=== PATIENT | female | born 1950 | race Caucasian/White ===

== ENCOUNTER 2017-07-14 08:04 | Day surgery (SDC) | payer MEDICARE, OTHER ==
[~2017-07-14] VITALS: Ht 162.6 cm; Wt 108.4 kg
[~2017-07-14 08:04] MED LIST: ALBU3IS INH; ALBU90OI61 INH; EDARBYCLOR 40-1 EACH PO; ESCI20 PO; FLUSAL2505 INH; HYDR1TAB94 PO; LOSA50 PO; POTCHL20ER PO; Prilosec Otc20 MG PO; TRIBENZOR 40-51 EACH PO; VITAMIN C; Vitamin B Comple1 EA PO; Voltaren100 GM TP; ZOLP10 PO
[2017-07-14] MEDS ORDERED: ACET500 PO (13:12)
[2017-07-14] MEDS ORDERED: OXYC5 PO (13:14)
[2017-07-14] MEDS ORDERED: ASPI325EC PO (13:14)
[2017-07-15 04:30] LABS: BASOPHILS ABSOLUTE AUTO 0.05 K/mm3 (0.00-0.23); BASOPHILS PERCENT AUTO 0 % (0-2); EOSINOPHILS ABSOLUTE AUTO 0.22 K/mm3 (0.00-0.68); EOSINOPHILS PERCENT AUTO 2 % (0-6); Hematocrit 33.8 % (33.0-51.0); Hemoglobin 10.6 g/dL (11.5-16.0); IMMATURE GRAN ABSOLUTE AUTO 0.04 K/mm3 (0.00-0.10); IMMATURE GRAN PERCENT AUTO 0 % (0-1); LYMPHOCYTES ABSOLUTE AUTO 1.38 K/mm3 (0.84-5.20); LYMPHOCYTES PERCENT AUTO 12 % (21-46); MONOCYTES ABSOLUTE AUTO 1.18 K/mm3 (0.16-1.47); MONOCYTES PERCENT AUTO 11 % (4-13); Mean Corpuscular HGB 28.9 pg (26.0-34.0); Mean Corpuscular HGB Conc 31.4 g/dL (31.5-36.5); Mean Corpuscular Volume 92 fL (80-100); Mean Platelet Volume 10.2 fL (9.1-12.4); NEUTROPHILS ABSOLUTE AUTO 8.32 K/mm3 (1.96-9.15); NEUTROPHILS PERCENT AUTO 74 % (41-73); Platelet Count 273 K/mm3 (150-400); RDW Coefficient Variation 16.4 % (11.7-14.2); RDW Standard Deviation 56.5 fL (35.1-46.3); Red Blood Cell Count 3.67 M/mm3 (3.80-5.20); White Blood Cell Count 11.19 K/mm3 (4.00-11.30)
[2017-07-15 04:51] LABS: Anion Gap 8 mmol/L (6-16); Blood Urea Nitrogen 20 mg/dL (8-24); Bun/Creatinine Ratio 23.9 (12.0-20.0); CO2, Blood 25 mmol/L (21-32); Calcium, Blood 8.7 mg/dL (8.5-10.1); Chloride, Blood 105 mmol/L (98-108); Creatinine, Blood 0.84 mg/dL (0.40-1.00); Glomerular Filtration Rate >60 (60-); Glucose, Blood 102 mg/dL (70-99); Magnesium, Blood 2.4 mg/dL (1.6-2.4); Potassium, Blood 4.2 mmol/L (3.5-5.5); Sodium, Blood 138 mmol/L (136-145)
== END 2017-07-15 16:35 | disposition home or self-care (01) ==
LOC: PRE IP 08:04 → ORSCMMR 08:04 → SURS 08:04 → PRE IP 10:30 → EDSTATUS 10:30 → SURS 13:11 → ORSCMMR 07-15 16:35
PROVIDERS: Orthopaedic Surgery
PROC: 0SRD0J9 Replacement of Left Knee Joint with Synthetic Substitute, Cemented, Open Approach (ICD-10-PCS; principal; 2017-07-14 10:30)
DX: M17.12 Unilateral primary osteoarthritis, left knee (principal); I10 Essential (primary) hypertension; J45.909 Unspecified asthma, uncomplicated; E66.01 Morbid (severe) obesity due to excess calories; Z68.41 Body mass index [BMI] 40.0-44.9, adult; Z79.899 Other long term (current) drug therapy
CPT/HCPCS: 36415; 73560-LT; 80048; 83735; 85025; 88300; 97110; 97116; 97161; 97530; C1713; C1776; G8978; G8979; G8980; J0171; J0690; J0735; J1885; J2250; J2405; J2765; J2795; J3010; J7120

== ENCOUNTER 2017-08-25 13:21 | Inpatient (IN) | payer MEDICARE, OTHER ==
[~2017-08-25] VITALS: Ht 162.6 cm; Wt 103.0 kg
[~2017-08-25 13:21] MED LIST changes: +ACET500 PO; +ASPI325EC PO; +OXYC5 PO
[2017-08-25 14:15] LABS: Alanine Aminotransfer (ALT/SGP 14 U/L (12-78); Albumin, Blood 3.2 g/dL (3.4-5.0); Albumin/Globulin Ratio 0.9 (0.8-1.8); Alk Phos 69 U/L (50-136); Anion Gap 18 mmol/L (6-16); Aspartate Aminotrans (AST/SGOT 8 U/L (12-37); Bilirubin, Total 0.3 mg/dL (0.1-1.0); Blood Urea Nitrogen 15 mg/dL (8-24); Bun/Creatinine Ratio 14.7 (12.0-20.0); CO2, Blood 15 mmol/L (21-32); Calcium, Blood 8.8 mg/dL (8.5-10.1); Chloride, Blood 104 mmol/L (98-108); Creatinine, Blood 1.02 mg/dL (0.40-1.00); Globulin, Blood 3.4 g/dL (2.2-4.0); Glomerular Filtration Rate 57 (60-); Glucose, Blood 144 mg/dL (70-99); Sodium, Blood 137 mmol/L (136-145); Total Protein, Blood 6.6 g/dL (6.4-8.2); Troponin I <0.015 ng/mL (0.000-0.040)
[2017-08-25 14:29] LABS: BASOPHILS ABSOLUTE AUTO 0.04 K/mm3 (0.00-0.23); BASOPHILS PERCENT AUTO 0 % (0-2); EOSINOPHILS ABSOLUTE AUTO 0.05 K/mm3 (0.00-0.68); EOSINOPHILS PERCENT AUTO 0 % (0-6); IMMATURE GRAN ABSOLUTE AUTO 0.11 K/mm3 (0.00-0.10); IMMATURE GRAN PERCENT AUTO 1 % (0-1); LYMPHOCYTES ABSOLUTE AUTO 1.79 K/mm3 (0.84-5.20); LYMPHOCYTES PERCENT AUTO 13 % (21-46); MONOCYTES ABSOLUTE AUTO 0.69 K/mm3 (0.16-1.47); MONOCYTES PERCENT AUTO 5 % (4-13); Mean Corpuscular HGB 23.5 pg (26.0-34.0); Mean Corpuscular HGB Conc 28.7 g/dL (31.5-36.5); Mean Corpuscular Volume 82 fL (80-100); NEUTROPHILS ABSOLUTE AUTO 10.88 K/mm3 (1.96-9.15); NEUTROPHILS PERCENT AUTO 80 % (41-73); Platelet Count 778 K/mm3 (150-400); RDW Coefficient Variation 18.6 % (11.7-14.2); RDW Standard Deviation 56.1 fL (35.1-46.3); Red Blood Cell Count 2.04 M/mm3 (3.80-5.20); White Blood Cell Count 13.56 K/mm3 (4.00-11.30)
[2017-08-25 15:06] LABS: Hematocrit 16.7 % (33.0-51.0); Hemoglobin 4.8 g/dL (11.5-16.0)
[2017-08-25 19:08] LABS: Percent Saturation 2.4 % (15.0-50.0)
[2017-08-26 05:05] LABS: BASOPHILS ABSOLUTE AUTO 0.05 K/mm3 (0.00-0.23); BASOPHILS PERCENT AUTO 1 % (0-2); EOSINOPHILS ABSOLUTE AUTO 0.31 K/mm3 (0.00-0.68); EOSINOPHILS PERCENT AUTO 3 % (0-6); IMMATURE GRAN ABSOLUTE AUTO 0.04 K/mm3 (0.00-0.10); IMMATURE GRAN PERCENT AUTO 0 % (0-1); LYMPHOCYTES ABSOLUTE AUTO 2.64 K/mm3 (0.84-5.20); LYMPHOCYTES PERCENT AUTO 27 % (21-46); MONOCYTES ABSOLUTE AUTO 0.74 K/mm3 (0.16-1.47); MONOCYTES PERCENT AUTO 7 % (4-13); Mean Corpuscular HGB 25.2 pg (26.0-34.0); Mean Corpuscular HGB Conc 31.5 g/dL (31.5-36.5); Mean Corpuscular Volume 80 fL (80-100); Mean Platelet Volume 9.5 fL (9.1-12.4); NEUTROPHILS ABSOLUTE AUTO 6.18 K/mm3 (1.96-9.15); NEUTROPHILS PERCENT AUTO 62 % (41-73); Platelet Count 518 K/mm3 (150-400); RDW Coefficient Variation 17.3 % (11.7-14.2); RDW Standard Deviation 50.4 fL (35.1-46.3); White Blood Cell Count 9.96 K/mm3 (4.00-11.30)
[2017-08-26 05:08] LABS: Hemoglobin 5.3 g/dL (11.5-16.0)
[2017-08-26 05:10] LABS: Hematocrit 16.8 % (33.0-51.0)
[2017-08-26 05:27] LABS: Alanine Aminotransfer (ALT/SGP 12 U/L (12-78); Albumin, Blood 2.5 g/dL (3.4-5.0); Albumin/Globulin Ratio 0.9 (0.8-1.8); Alk Phos 57 U/L (50-136); Anion Gap 7 mmol/L (6-16); Aspartate Aminotrans (AST/SGOT 8 U/L (12-37); Bilirubin, Total 0.7 mg/dL (0.1-1.0); Blood Urea Nitrogen 16 mg/dL (8-24); Bun/Creatinine Ratio 18.3 (12.0-20.0); CO2, Blood 24 mmol/L (21-32); Calcium, Blood 7.9 mg/dL (8.5-10.1); Chloride, Blood 110 mmol/L (98-108); Creatinine, Blood 0.87 mg/dL (0.40-1.00); Globulin, Blood 2.8 g/dL (2.2-4.0); Glomerular Filtration Rate >60 (60-); Glucose, Blood 82 mg/dL (70-99); Sodium, Blood 141 mmol/L (136-145); Thyroxine (T4) 7.9 ug/dL (4.8-13.9); Total Protein, Blood 5.3 g/dL (6.4-8.2)
[2017-08-26 05:31] LABS: Triiodothyronine, Free 2.37 pg/mL (2.18-3.98)
[2017-08-26 19:31] LABS: RNP/SM Ab IgG <0.2 AI (<1.0)
[2017-08-27 04:39] LABS: BASOPHILS ABSOLUTE AUTO 0.05 K/mm3 (0.00-0.23); BASOPHILS PERCENT AUTO 1 % (0-2); EOSINOPHILS ABSOLUTE AUTO 0.52 K/mm3 (0.00-0.68); EOSINOPHILS PERCENT AUTO 5 % (0-6); Hematocrit 22.8 % (33.0-51.0); Hemoglobin 7.3 g/dL (11.5-16.0); IMMATURE GRAN ABSOLUTE AUTO 0.05 K/mm3 (0.00-0.10); IMMATURE GRAN PERCENT AUTO 1 % (0-1); LYMPHOCYTES ABSOLUTE AUTO 2.53 K/mm3 (0.84-5.20); LYMPHOCYTES PERCENT AUTO 26 % (21-46); MONOCYTES ABSOLUTE AUTO 0.87 K/mm3 (0.16-1.47); MONOCYTES PERCENT AUTO 9 % (4-13); Mean Corpuscular HGB 26.4 pg (26.0-34.0); Mean Corpuscular Volume 82 fL (80-100); Mean Platelet Volume 9.1 fL (9.1-12.4); NEUTROPHILS ABSOLUTE AUTO 5.84 K/mm3 (1.96-9.15); NEUTROPHILS PERCENT AUTO 59 % (41-73); Platelet Count 540 K/mm3 (150-400); RDW Coefficient Variation 17.2 % (11.7-14.2); RDW Standard Deviation 51.8 fL (35.1-46.3); Red Blood Cell Count 2.77 M/mm3 (3.80-5.20); White Blood Cell Count 9.86 K/mm3 (4.00-11.30)
[2017-08-27 04:58] LABS: Anion Gap 8 mmol/L (6-16); Blood Urea Nitrogen 10 mg/dL (8-24); Bun/Creatinine Ratio 12.7 (12.0-20.0); CO2, Blood 25 mmol/L (21-32); Calcium, Blood 8.4 mg/dL (8.5-10.1); Chloride, Blood 109 mmol/L (98-108); Creatinine, Blood 0.79 mg/dL (0.40-1.00); Glomerular Filtration Rate >60 (60-); Glucose, Blood 80 mg/dL (70-99); Potassium, Blood 3.7 mmol/L (3.5-5.5); Sodium, Blood 142 mmol/L (136-145)
[2017-08-27 07:17] LABS: C3 119 mg/dL
[2017-08-27 14:18] LABS: Stool Occult Blood Guaiac 1 Pos (Neg)
[2017-08-28 05:00] LABS: Hematocrit 26.2 % (33.0-51.0); Hemoglobin 8.1 g/dL (11.5-16.0); Mean Corpuscular HGB 25.6 pg (26.0-34.0); Mean Corpuscular HGB Conc 30.9 g/dL (31.5-36.5); Mean Corpuscular Volume 83 fL (80-100); Mean Platelet Volume 9.1 fL (9.1-12.4); Platelet Count 533 K/mm3 (150-400); RDW Coefficient Variation 17.6 % (11.7-14.2); RDW Standard Deviation 52.8 fL (35.1-46.3); Red Blood Cell Count 3.16 M/mm3 (3.80-5.20); White Blood Cell Count 14.05 K/mm3 (4.00-11.30)
[2017-08-28 05:23] LABS: Anion Gap 6 mmol/L (6-16); Blood Urea Nitrogen 14 mg/dL (8-24); Bun/Creatinine Ratio 15.5 (12.0-20.0); CO2, Blood 26 mmol/L (21-32); Calcium, Blood 8.3 mg/dL (8.5-10.1); Chloride, Blood 109 mmol/L (98-108); Glomerular Filtration Rate >60 (60-); Glucose, Blood 87 mg/dL (70-99); Potassium, Blood 4.2 mmol/L (3.5-5.5); Sodium, Blood 141 mmol/L (136-145)
[2017-08-28 05:31] LABS: Percent Saturation 6.6 % (15.0-50.0)
== END 2017-08-28 13:56 | disposition home or self-care (01) | DRG 379 ==
LOC: ER 13:21 → PCU 13:22 → MEDS 13:22 → PCU 21:04 → MEDS 08-26 13:41 → PCU 08-26 15:36 → MEDS 08-26 19:36
PROVIDERS: Emergency Medicine; Family Medicine; Internal Medicine; Internal Medicine Gastroenterology
PROC: 30233N1 Transfusion of Nonautologous Red Blood Cells into Peripheral Vein, Percutaneous Approach (ICD-10-PCS; principal; 2017-08-25)
PROC: 0DJD8ZZ Inspection of Lower Intestinal Tract, Via Natural or Artificial Opening Endoscopic (ICD-10-PCS; 2017-08-27 15:15)
PROC: 0DB68ZX Excision of Stomach, Via Natural or Artificial Opening Endoscopic, Diagnostic (ICD-10-PCS; 2017-08-27 15:15)
PROC: 0DB58ZX Excision of Esophagus, Via Natural or Artificial Opening Endoscopic, Diagnostic (ICD-10-PCS; 2017-08-27 15:15)
DX: K25.4 Chronic or unspecified gastric ulcer with hemorrhage (principal); I12.9 Hypertensive chronic kidney disease with stage 1 through stage 4 chronic kidney disease, or unspecified chronic kidney disease; N18.1 Chronic kidney disease, stage 1; K21.9 Gastro-esophageal reflux disease without esophagitis; Z96.653 Presence of artificial knee joint, bilateral; K44.9 Diaphragmatic hernia without obstruction or gangrene; D50.9 Iron deficiency anemia, unspecified; K64.8 Other hemorrhoids; K57.90 Diverticulosis of intestine, part unspecified, without perforation or abscess without bleeding; Z88.0 Allergy status to penicillin
CPT/HCPCS: 36415; 36430; 71046; 80048; 80053; 82270; 82272; 82607; 82728; 82746; 83540; 83550; 83880; 84436; 84443; 84481; 84484; 85025; 85027; 85651; 86160; 86225; 86235; 86255; 86850; 86900; 86901; 86923; 88305; 88342; 93005; 93010; 94640; 94760; 96361; 96374; 99285; C9113; J2250; J2916; J7030; J7120; P9016

== ENCOUNTER → 2018-07-23 | Outpatient (CLI) | payer MEDICARE, OTHER ==
[2018-07-23 18:12] LABS: BASOPHILS ABSOLUTE AUTO 0.09 K/mm3 (0.00-0.23); BASOPHILS PERCENT AUTO 1 % (0-2); EOSINOPHILS ABSOLUTE AUTO 0.15 K/mm3 (0.00-0.68); EOSINOPHILS PERCENT AUTO 1 % (0-6); Hemoglobin 9.2 g/dL (11.5-16.0); IMMATURE GRAN ABSOLUTE AUTO 0.05 K/mm3 (0.00-0.10); IMMATURE GRAN PERCENT AUTO 1 % (0-1); LYMPHOCYTES ABSOLUTE AUTO 1.98 K/mm3 (0.84-5.20); LYMPHOCYTES PERCENT AUTO 18 % (21-46); MONOCYTES ABSOLUTE AUTO 0.74 K/mm3 (0.16-1.47); MONOCYTES PERCENT AUTO 7 % (4-13); Mean Corpuscular HGB 23.2 pg (26.0-34.0); Mean Corpuscular HGB Conc 29.7 g/dL (31.5-36.5); Mean Corpuscular Volume 78 fL (80-100); Mean Platelet Volume 10.1 fL (9.1-12.4); NEUTROPHILS ABSOLUTE AUTO 7.78 K/mm3 (1.96-9.15); NEUTROPHILS PERCENT AUTO 72 % (41-73); Platelet Count 532 K/mm3 (150-400); RDW Coefficient Variation 15.5 % (11.7-14.2); RDW Standard Deviation 44.5 fL (35.1-46.3); Red Blood Cell Count 3.97 M/mm3 (3.80-5.20); White Blood Cell Count 10.79 K/mm3 (4.00-11.30)
== END ==
LOC: LAB SHORT 17:55 → LAB 17:55
PROVIDERS: Internal Medicine Hematology & Oncology
DX: D50.0 Iron deficiency anemia secondary to blood loss (chronic) (principal)
CPT/HCPCS: 85025

== ENCOUNTER 2019-08-06 10:41 | Day surgery (SDC) | payer MEDICARE, OTHER ==
[~2019-08-06] VITALS: Ht 162.6 cm; Wt 107.4 kg
[2019-08-06] MEDS ORDERED: ESCI20 (11:34)
[2019-08-06] MEDS ORDERED: LOSA50 (11:34)
== END 2019-08-06 13:15 | disposition home or self-care (01) ==
LOC: ORSCSDS 10:41
PROVIDERS: Internal Medicine Gastroenterology
PROC: 0DBH8ZX Excision of Cecum, Via Natural or Artificial Opening Endoscopic, Diagnostic (ICD-10-PCS; principal; 2019-08-06 12:00)
PROC: 0DB78ZX Excision of Stomach, Pylorus, Via Natural or Artificial Opening Endoscopic, Diagnostic (ICD-10-PCS; principal; 2019-08-06 12:00)
PROC: 0DB58ZX Excision of Esophagus, Via Natural or Artificial Opening Endoscopic, Diagnostic (ICD-10-PCS; principal; 2019-08-06 12:00)
PROC: 0DB98ZX Excision of Duodenum, Via Natural or Artificial Opening Endoscopic, Diagnostic (ICD-10-PCS; principal; 2019-08-06 12:00)
PROC: 0DBL8ZX Excision of Transverse Colon, Via Natural or Artificial Opening Endoscopic, Diagnostic (ICD-10-PCS; principal; 2019-08-06 12:00)
DX: K52.9 Noninfective gastroenteritis and colitis, unspecified (principal); D50.9 Iron deficiency anemia, unspecified; R93.3 Abnormal findings on diagnostic imaging of other parts of digestive tract; D12.0 Benign neoplasm of cecum; D12.3 Benign neoplasm of transverse colon; K63.89 Other specified diseases of intestine; K21.0 Gastro-esophageal reflux disease with esophagitis; K44.9 Diaphragmatic hernia without obstruction or gangrene; K57.30 Diverticulosis of large intestine without perforation or abscess without bleeding; K64.1 Second degree hemorrhoids; I10 Essential (primary) hypertension; J45.909 Unspecified asthma, uncomplicated; E78.5 Hyperlipidemia, unspecified; Z79.899 Other long term (current) drug therapy
CPT/HCPCS: 88305; 88341; 88342; J2704; J7120

== ENCOUNTER 2019-10-25 12:32 | Emergency (ER) | payer MEDICARE, OTHER ==
[~2019-10-25] VITALS: Ht 162.6 cm; Wt 106.6 kg
[~2019-10-25 12:32] MED LIST changes: +ESCI20; +LOSA50
[2019-10-25 13:53] LABS: BASOPHILS ABSOLUTE AUTO 0.08 K/mm3 (0.00-0.23); BASOPHILS PERCENT AUTO 1 % (0-2); EOSINOPHILS ABSOLUTE AUTO 0.09 K/mm3 (0.00-0.68); EOSINOPHILS PERCENT AUTO 1 % (0-6); Hematocrit 32.4 % (33.0-51.0); Hemoglobin 9.4 g/dL (11.5-16.0); IMMATURE GRAN ABSOLUTE AUTO 0.02 K/mm3 (0.00-0.10); IMMATURE GRAN PERCENT AUTO 0 % (0-1); LYMPHOCYTES ABSOLUTE AUTO 1.16 K/mm3 (0.84-5.20); LYMPHOCYTES PERCENT AUTO 13 % (21-46); MONOCYTES ABSOLUTE AUTO 0.54 K/mm3 (0.16-1.47); MONOCYTES PERCENT AUTO 6 % (4-13); Mean Corpuscular HGB 22.6 pg (26.0-34.0); Mean Corpuscular Volume 78 fL (80-100); Mean Platelet Volume 10.2 fL (9.1-12.4); NEUTROPHILS ABSOLUTE AUTO 6.81 K/mm3 (1.96-9.15); NEUTROPHILS PERCENT AUTO 78 % (41-73); Platelet Count 434 K/mm3 (150-400); RDW Coefficient Variation 15.9 % (11.7-14.2); RDW Standard Deviation 44.1 fL (35.1-46.3); Red Blood Cell Count 4.16 M/mm3 (3.80-5.20)
[2019-10-25 13:59] LABS: Source, Urine Clean Catch
[2019-10-25 14:13] LABS: Bilirubin, Urine Neg (Neg); Blood, Urine Neg (Neg); Glucose Qualitative, Urine Neg (Neg); Ketones, Urine Neg (Neg); Leukocyte Esterase, Urine Neg (Neg); Nitrite, Urine Neg (Neg); Protein, Urine Neg (Neg); Specific Gravity, Urine 1.005 (1.003-1.022); Urobilinogen, Urine NORM (Normal); pH, Urine 6.5 (5.0-8.0)
[2019-10-25 14:16] LABS: Alanine Aminotransfer (ALT/SGP 21 U/L (12-78); Albumin, Blood 3.5 g/dL (3.4-5.0); Albumin/Globulin Ratio 0.9 (0.8-1.8); Alk Phos 66 U/L (50-136); Anion Gap 8 mmol/L (6-16); Aspartate Aminotrans (AST/SGOT 21 U/L (12-37); Bilirubin, Total 0.4 mg/dL (0.1-1.0); Blood Urea Nitrogen 23 mg/dL (8-24); Bun/Creatinine Ratio 31.3 (12.0-20.0); CO2, Blood 23 mmol/L (21-32); Calcium, Blood 8.4 mg/dL (8.5-10.1); Chloride, Blood 107 mmol/L (98-108); Creatinine, Blood 0.73 mg/dL (0.40-1.00); Globulin, Blood 3.7 g/dL (2.2-4.0); Glomerular Filtration Rate >60 (60-); Glucose, Blood 123 mg/dL (70-99); Sodium, Blood 138 mmol/L (136-145); Total Protein, Blood 7.2 g/dL (6.4-8.2)
[2019-10-25 14:26] LABS: Troponin I <0.015 ng/mL (0.000-0.040)
[2019-10-25 14:43] LABS: Appearance, Urine Clear (Clear); Color, Urine Pale Yellow (P-Yellow)
== END 2019-10-25 15:29 | disposition home or self-care (01) ==
LOC: ER 12:32
PROVIDERS: Emergency Medicine
DX: D64.9 Anemia, unspecified (principal); F41.9 Anxiety disorder, unspecified; Z88.0 Allergy status to penicillin; Z91.048 Other nonmedicinal substance allergy status; Z79.899 Other long term (current) drug therapy
CPT/HCPCS: 36415; 71045; 80053; 81003; 84484; 85025; 86850; 86900; 86901; 93005; 93010; 96360; 99284-25; J7030

== ENCOUNTER → 2020-08-03 | Outpatient (CLI) | payer MEDICARE, OTHER ==
[2020-08-03 21:26] LABS: Percent Saturation 6.8 % (15.0-50.0)
== END | disposition home or self-care (01) ==
LOC: LAB SHORT 11:50 → LAB 11:50
PROVIDERS: Internal Medicine Hematology & Oncology
DX: D50.9 Iron deficiency anemia, unspecified (principal); D51.8 Other vitamin B12 deficiency anemias
CPT/HCPCS: 82607; 82728; 82746; 83540; 83550

== ENCOUNTER → 2020-12-28 | Outpatient (CLI) | payer MEDICARE, OTHER ==
[2020-12-28 19:03] LABS: BASOPHILS ABSOLUTE AUTO 0.08 K/mm3 (0.00-0.23); BASOPHILS PERCENT AUTO 1 % (0-2); EOSINOPHILS ABSOLUTE AUTO 0.15 K/mm3 (0.00-0.68); EOSINOPHILS PERCENT AUTO 1 % (0-6); Hematocrit 36.2 % (33.0-51.0); Hemoglobin 11.3 g/dL (11.5-16.0); IMMATURE GRAN ABSOLUTE AUTO 0.04 K/mm3 (0.00-0.10); IMMATURE GRAN PERCENT AUTO 0 % (0-1); LYMPHOCYTES ABSOLUTE AUTO 1.79 K/mm3 (0.84-5.20); LYMPHOCYTES PERCENT AUTO 17 % (21-46); MONOCYTES ABSOLUTE AUTO 0.67 K/mm3 (0.16-1.47); MONOCYTES PERCENT AUTO 6 % (4-13); Mean Corpuscular HGB 26.2 pg (26.0-34.0); Mean Corpuscular HGB Conc 31.2 g/dL (31.5-36.5); Mean Corpuscular Volume 84 fL (80-100); Mean Platelet Volume 11.1 fL (9.1-12.4); NEUTROPHILS ABSOLUTE AUTO 7.92 K/mm3 (1.96-9.15); NEUTROPHILS PERCENT AUTO 74 % (41-73); Platelet Count 437 K/mm3 (150-400); Red Blood Cell Count 4.32 M/mm3 (3.80-5.20); White Blood Cell Count 10.65 K/mm3 (4.00-11.30)
[2020-12-28 19:17] LABS: Percent Saturation 3.6 % (15.0-50.0)
== END | disposition home or self-care (01) ==
LOC: LAB SHORT 18:06 → LAB 18:06
PROVIDERS: Internal Medicine Hematology & Oncology
DX: D50.9 Iron deficiency anemia, unspecified (principal)
CPT/HCPCS: 82728; 83540; 83550; 85025

== ENCOUNTER 2021-09-14 09:52 | Day surgery (SDC) | payer MEDICARE, OTHER ==
[~2021-09-14] VITALS: Ht 162.6 cm; Wt 102.9 kg
[~2021-09-14 09:52] MED LIST changes: +ASCO500 PO; +CALCIUM 1,0001 EAC1 PO; +ESTRADIOL/PROGESTERO VAG; +PROG100 PO; +TRAZ150T57 PO; +VITAMIN D325 MC3 PO; +ZOLP12.5 PO
--- NOTE | 2021-09-14 10:48 | NUR ---
09/14/21 1048 RANDOLPH HARDEN 2 ATTEMPTS AT IV.FIRST ATTEMPT BY MA IN RIGHT HAND INFILTRATED. SECOND ATTEMPT BY MA IN RIGHT FOREARM SUCCESSFUL.
== END 2021-09-14 11:55 | disposition home or self-care (01) ==
LOC: ORSCSDS 09:52
PROVIDERS: Surgery
PROC: 0DJ08ZZ Inspection of Upper Intestinal Tract, Via Natural or Artificial Opening Endoscopic (ICD-10-PCS; principal; 2021-09-14 11:15)
DX: K44.9 Diaphragmatic hernia without obstruction or gangrene (principal); D50.0 Iron deficiency anemia secondary to blood loss (chronic); Z87.11 Personal history of peptic ulcer disease; I10 Essential (primary) hypertension; J45.909 Unspecified asthma, uncomplicated; F32.A Depression, unspecified; K21.9 Gastro-esophageal reflux disease without esophagitis; Z79.899 Other long term (current) drug therapy
CPT/HCPCS: J0330; J0461; J2250; J2405; J2704; J7120

== ENCOUNTER → 2021-12-10 | Outpatient (CLI) | payer MEDICARE, OTHER ==
[2021-12-10 13:38] LABS: Percent Saturation 4.7 % (15.0-50.0)
== END | disposition home or self-care (01) ==
LOC: LAB SHORT 11:26
PROVIDERS: Internal Medicine Hematology & Oncology
DX: D50.9 Iron deficiency anemia, unspecified (principal)
CPT/HCPCS: 82728; 83540; 83550

== ENCOUNTER → 2022-06-13 | Outpatient (CLI) | payer MEDICARE, OTHER ==
[2022-06-13 20:38] LABS: Percent Saturation 3.7 % (15.0-50.0)
== END | disposition home or self-care (01) ==
LOC: LAB SHORT 11:59
PROVIDERS: Internal Medicine Hematology & Oncology
DX: D50.9 Iron deficiency anemia, unspecified (principal)
CPT/HCPCS: 82728; 83540; 83550

== ENCOUNTER 2022-09-24 11:30 | Day surgery (SDC) | payer MEDICARE, OTHER ==
[~2022-09-24] VITALS: Ht 162.6 cm; Wt 87.3 kg
[2022-09-24] MEDS ORDERED: ESCI20 (11:56)
[2022-09-24] MEDS ORDERED: ALBU90OI (11:58)
--- NOTE | 2022-09-24 12:05 | NUR ---
09/24/22 1205 Janessa Saenz TETRACAINE TO LEFT EYE AT 1200 PLEDGET TO LEFT EYE AR 1202 BY [facility].WILLIE
[2022-09-24 13:27] VITALS: BP 128/76
--- NOTE | 2022-09-24 13:49 | NUR ---
09/24/22 1349 Aravind Blackman IV REMOVED. SITE WNL.
== END 2022-09-24 13:40 | disposition home or self-care (01) ==
LOC: ORSCSDS 11:30
PROVIDERS: Ophthalmology
PROC: 08DK3ZZ Extraction of Left Lens, Percutaneous Approach (ICD-10-PCS; principal; 2022-09-24 13:00)
DX: H25.13 Age-related nuclear cataract, bilateral (principal); J45.909 Unspecified asthma, uncomplicated; F32.A Depression, unspecified; I10 Essential (primary) hypertension; F41.1 Generalized anxiety disorder; E78.5 Hyperlipidemia, unspecified; D64.9 Anemia, unspecified; I12.9 Hypertensive chronic kidney disease with stage 1 through stage 4 chronic kidney disease, or unspecified chronic kidney disease; N18.9 Chronic kidney disease, unspecified; K21.9 Gastro-esophageal reflux disease without esophagitis; E66.9 Obesity, unspecified; Z68.33 Body mass index [BMI] 33.0-33.9, adult; Z79.899 Other long term (current) drug therapy
CPT/HCPCS: J2001; J2250; J3010; J3301; J7040; V2632

== ENCOUNTER 2022-10-01 10:39 | Day surgery (SDC) | payer MEDICARE, OTHER ==
[~2022-10-01] VITALS: Ht 162.6 cm; Wt 87.6 kg
[~2022-10-01 10:39] MED LIST changes: +ALBU90OI
[2022-10-01] MEDS ORDERED: CLIMARA1 EACH TOP (12:16)
--- NOTE | 2022-10-01 12:28 | NUR ---
10/01/22 1228 Janessa Saenz CALL LIGHT WITHIN REACH. TETRACAINE IN RIGHT EYE AT 1215 AND PLEDGETT IN EYE AT 1216.
[2022-10-01 13:46] VITALS: BP 137/80
--- NOTE | 2022-10-01 13:49 | NUR ---
[facility]01/[address]
== END 2022-10-01 14:05 | disposition home or self-care (01) ==
LOC: ORSCSDS 10:39
PROVIDERS: Ophthalmology
PROC: 08DJ3ZZ Extraction of Right Lens, Percutaneous Approach (ICD-10-PCS; principal; 2022-10-01 13:00)
DX: H25.11 Age-related nuclear cataract, right eye (principal); Z96.1 Presence of intraocular lens; I10 Essential (primary) hypertension; J45.909 Unspecified asthma, uncomplicated; E78.5 Hyperlipidemia, unspecified; D50.9 Iron deficiency anemia, unspecified; Z79.899 Other long term (current) drug therapy
CPT/HCPCS: A9270; J2250; J3010; J3301; J7040; V2632

== ENCOUNTER 2022-11-24 19:10 | Emergency (ER) | payer OTHER, MEDICARE ==
[~2022-11-24] VITALS: Ht 162.6 cm; Wt 86.2 kg
[~2022-11-24 19:10] MED LIST changes: +CLIMARA1 EACH TOP
[2022-11-24 19:14] VITALS: BP 154/80
[2022-11-24] MEDS ORDERED: OXYC5 PO (19:43)
== END 2022-11-24 20:22 | disposition home or self-care (01) ==
LOC: ER 19:10
DX: S42.292A Other displaced fracture of upper end of left humerus, initial encounter for closed fracture (principal); W01.198A Fall on same level from slipping, tripping and stumbling with subsequent striking against other object, initial encounter
CPT/HCPCS: 73030; 99283-25; A9270

== ENCOUNTER → 2022-12-04 | Outpatient (CLI) | payer MEDICARE, OTHER ==
[2022-12-04 14:22] LABS: Albumin, Blood 3.3 g/dL (3.4-5.0); Albumin/Globulin Ratio 1.1 (0.8-1.8); Bilirubin, Total 0.6 mg/dL (0.1-1.0); Calcium, Blood 9.4 mg/dL (8.5-10.1); Creatinine, Blood 0.69 mg/dL (0.40-1.00); Globulin, Blood 2.9 g/dL (2.2-4.0); Percent Saturation 9.4 % (15.0-50.0); Phosphorus, Blood 3.6 mg/dL (2.5-4.9); Potassium, Blood 4.7 mmol/L (3.5-5.5); Total Protein, Blood 6.2 g/dL (6.4-8.2)
== END | disposition home or self-care (01) ==
LOC: LAB SHORT 11:00 → LAB 11:00
PROVIDERS: Internal Medicine Hematology & Oncology
DX: D50.9 Iron deficiency anemia, unspecified (principal)
CPT/HCPCS: 80053; 82728; 83540; 83550; 84100

== ENCOUNTER → 2023-03-31 | Outpatient (CLI) | payer MEDICARE, OTHER ==
[2023-03-31 18:46] LABS: Percent Saturation 6.2 % (15.0-50.0)
== END ==
LOC: LAB 15:06 → LAB SHORT 15:06
PROVIDERS: Internal Medicine Hematology & Oncology
DX: D50.0 Iron deficiency anemia secondary to blood loss (chronic) (principal)
CPT/HCPCS: 82728; 83540; 83550

== ENCOUNTER → 2023-05-28 | Outpatient (CLI) | payer MEDICARE, OTHER ==
[~2023-05-28] MED LIST changes: -ALBU90OI; +ALBU90OI INH; +ESTRADIOL0.5 MG PO
== END ==
LOC: PLD 07:33 → LAB SHORT 07:33
DX: R23.8 Other skin changes (principal); L81.8 Other specified disorders of pigmentation
CPT/HCPCS: 88341; 88342

== ENCOUNTER 2023-06-10 13:39 | Inpatient (IN) | payer MEDICARE, OTHER ==
[~2023-06-10] VITALS: Ht 162.6 cm; Wt 88.8 kg
[~2023-06-10 13:39] MED LIST changes: -ESTRADIOL0.5 MG PO
[2023-06-10 14:48] LABS: BASOPHILS PERCENT AUTO 0 % (0-2); EOSINOPHILS ABSOLUTE AUTO 0.14 K/mm3 (0.00-0.68); EOSINOPHILS PERCENT AUTO 1 % (0-6); Hemoglobin 11.8 g/dL (11.5-16.0); IMMATURE GRAN PERCENT AUTO 2 % (0-1); LYMPHOCYTES ABSOLUTE AUTO 0.62 K/mm3 (0.84-5.20); LYMPHOCYTES PERCENT AUTO 3 % (21-46); MONOCYTES ABSOLUTE AUTO 1.88 K/mm3 (0.16-1.47); MONOCYTES PERCENT AUTO 8 % (4-13); Mean Corpuscular HGB 25.5 pg (26.0-34.0); Mean Corpuscular HGB Conc 31.9 g/dL (31.5-36.5); Mean Corpuscular Volume 80 fL (80-100); Mean Platelet Volume 9.2 fL (9.1-12.4); NEUTROPHILS ABSOLUTE AUTO 21.41 K/mm3 (1.96-9.15); NEUTROPHILS PERCENT AUTO 87 % (41-73); Platelet Count 747 K/mm3 (150-400); RDW Coefficient Variation 17.6 % (11.7-14.2); RDW Standard Deviation 51.1 fL (35.1-46.3); Red Blood Cell Count 4.63 M/mm3 (3.80-5.20); White Blood Cell Count 24.75 K/mm3 (4.00-11.30)
[2023-06-10 15:28] LABS: Albumin, Blood 2.3 g/dL (3.4-5.0); Albumin/Globulin Ratio 0.5 (0.8-1.8); Bilirubin, Total 0.6 mg/dL (0.1-1.0); Bun/Creatinine Ratio 19.8 (12.0-20.0); Calcium, Blood 8.2 mg/dL (8.5-10.1); Creatinine, Blood 0.66 mg/dL (0.40-1.00); Potassium, Blood 3.4 mmol/L (3.5-5.5); Total Protein, Blood 7.3 g/dL (6.4-8.2)
[2023-06-10 18:07] LABS: Source, Urine Straight Cath
[2023-06-10 18:12] LABS: Appearance, Urine Clear (Clear); Bilirubin, Urine Neg (Neg); Blood, Urine 2+ (Neg); Color, Urine Amber (P-Yellow); Glucose Qualitative, Urine Neg (Neg); Ketones, Urine Neg (Neg); Leukocyte Esterase, Urine 1+ (Neg); Nitrite, Urine Neg (Neg); Protein, Urine 2+ (Neg); Urobilinogen, Urine 1+ (Normal)
[2023-06-10 18:20] LABS: Granular Casts 0-2 /lpf (0); Squamous Epithelial Cells Few /hpf (Few)
[2023-06-10 18:21] LABS: Bacteria Mod /hpf; Transitional Epithelial Cells Rare /hpf (0-Rare)
[2023-06-11 05:09] LABS: BASOPHILS ABSOLUTE AUTO 0.11 K/mm3 (0.00-0.23); BASOPHILS PERCENT AUTO 1 % (0-2); EOSINOPHILS ABSOLUTE AUTO 1.04 K/mm3 (0.00-0.68); EOSINOPHILS PERCENT AUTO 6 % (0-6); Hematocrit 32.5 % (33.0-51.0); Hemoglobin 10.4 g/dL (11.5-16.0); IMMATURE GRAN ABSOLUTE AUTO 0.29 K/mm3 (0.00-0.10); IMMATURE GRAN PERCENT AUTO 2 % (0-1); LYMPHOCYTES ABSOLUTE AUTO 0.98 K/mm3 (0.84-5.20); LYMPHOCYTES PERCENT AUTO 5 % (21-46); MONOCYTES ABSOLUTE AUTO 1.37 K/mm3 (0.16-1.47); MONOCYTES PERCENT AUTO 8 % (4-13); Mean Corpuscular HGB 25.4 pg (26.0-34.0); Mean Corpuscular Volume 80 fL (80-100); Mean Platelet Volume 9.6 fL (9.1-12.4); NEUTROPHILS ABSOLUTE AUTO 14.31 K/mm3 (1.96-9.15); NEUTROPHILS PERCENT AUTO 79 % (41-73); Platelet Count 586 K/mm3 (150-400); RDW Coefficient Variation 17.8 % (11.7-14.2); RDW Standard Deviation 50.6 fL (35.1-46.3); Red Blood Cell Count 4.09 M/mm3 (3.80-5.20)
[2023-06-11 05:43] LABS: Albumin/Globulin Ratio 0.5 (0.8-1.8); Bilirubin, Total 0.8 mg/dL (0.1-1.0); Bun/Creatinine Ratio 18.8 (12.0-20.0); Calcium, Blood 7.6 mg/dL (8.5-10.1); Creatinine, Blood 0.53 mg/dL (0.40-1.00); Globulin, Blood 4.3 g/dL (2.2-4.0); Potassium, Blood 3.5 mmol/L (3.5-5.5); Total Protein, Blood 6.3 g/dL (6.4-8.2)
[2023-06-11 15:43] VITALS: BP 110/63
[2023-06-11] MEDS ORDERED: ESTRADIOL0.5 MG PO (16:10)
--- NOTE | 2023-06-11 18:26 | NUR ---
PT ARRIVED TO THE MEDICAL FLOOR FROM THE ER VIA GURNEY. THE PT WAS ABLE TO TRANSFER FROM THE GURNEY TO THE BED WITH MINIMAL ASSIST. THE PT IS PLEASANT AND COOPERATIVE. THE PT WAS ORIENTED TO THE ROOM LAYOUT AND CALL SYSTEM. WOUND PHOTOS OF THE PTS LEFT ARM WERE TAKEN AND PLACED IN THE CHART. CALL LIGHT IN REACH
[2023-06-11 19:29] VITALS: BP 89/66
--- NOTE | 2023-06-11 19:47 | NUR ---
BP 89/66, ASYMPTOMATIC. LEGS ELEVATED. WILL RECHECK BP IN 1-2 HRS FOR FOLLOW UP. CALL LIGHT IN REACH
[2023-06-11 22:07] VITALS: BP 105/56
[2023-06-12 03:14] VITALS: BP 107/50
--- NOTE | 2023-06-12 04:39 | NUR ---
SHIFT SUMMARY PT ADMIT FOR SEPSIS DT UTI. 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 IT IS NOT TREATABLE, AND PALLIATIVE CARE HAS BEEN CONSULTED. SHE HAS REQUESTED ZOFRAN FOR NAUSEA. PT IS CURRENTLY ON 4L O2 VIA NC. SHE IS ABLE TO GET UP TO BEDSIDE COMMODE WITH 1 ASSIST. PT HAS BEEN PLEASANT AND COOPERATIVE WITH HER CARE.
[2023-06-12 05:52] LABS: BASOPHILS ABSOLUTE AUTO 0.11 K/mm3 (0.00-0.23); BASOPHILS PERCENT AUTO 1 % (0-2); EOSINOPHILS ABSOLUTE AUTO 1.16 K/mm3 (0.00-0.68); EOSINOPHILS PERCENT AUTO 5 % (0-6); Hematocrit 29.2 % (33.0-51.0); Hemoglobin 9.5 g/dL (11.5-16.0); IMMATURE GRAN ABSOLUTE AUTO 0.42 K/mm3 (0.00-0.10); IMMATURE GRAN PERCENT AUTO 2 % (0-1); LYMPHOCYTES ABSOLUTE AUTO 0.77 K/mm3 (0.84-5.20); LYMPHOCYTES PERCENT AUTO 3 % (21-46); MONOCYTES ABSOLUTE AUTO 1.92 K/mm3 (0.16-1.47); MONOCYTES PERCENT AUTO 8 % (4-13); Mean Corpuscular HGB 25.6 pg (26.0-34.0); Mean Corpuscular HGB Conc 32.5 g/dL (31.5-36.5); Mean Corpuscular Volume 79 fL (80-100); Mean Platelet Volume 9.7 fL (9.1-12.4); NEUTROPHILS ABSOLUTE AUTO 18.62 K/mm3 (1.96-9.15); NEUTROPHILS PERCENT AUTO 81 % (41-73); Platelet Count 544 K/mm3 (150-400); RDW Standard Deviation 51.2 fL (35.1-46.3); Red Blood Cell Count 3.71 M/mm3 (3.80-5.20)
--- NOTE | 2023-06-12 06:28 | NUR ---
ALLERGY ALERT PT STATES ALLERGY TO PENICILLIN. WILL CAUSE ANAPHYLAXIS. PT AND PHARMACY STATE SHE RECEIVED IV ROCEPHIN IN ED. PT STATES SHE HAD NO REACTION TO IV ROCEPHIN. DISCUSSED PT'S REACTIONS TO PENICILLIN. WILL CONTINUE TO MONITOR FOR SIGNS OF ADVERSE REACTION.
[2023-06-12 06:30] LABS: Bun/Creatinine Ratio 8.9 (12.0-20.0); Calcium, Blood 7.5 mg/dL (8.5-10.1); Creatinine, Blood 0.56 mg/dL (0.40-1.00); Potassium, Blood 3.5 mmol/L (3.5-5.5)
[2023-06-12 06:32] LABS: Vancomycin, Trough 13.6 ug/mL (5.0-10.0)
[2023-06-12 07:58] VITALS: BP 105/50
[2023-06-12 15:54] VITALS: BP 101/50
--- NOTE | 2023-06-12 17:14 | NUR ---
PT IS A/OX4, PLEASANT AND COOPERATIVE. PT IS UP WITH MINIMAL ASSIST TO THE BSC. THE PT WAS MEDICATED FOR PAIN AND NAUSEA X2 TODAY SO FAR. THE PT REQUESTED AND WAS GIVEN A BREATHING TX THIS AFTERNOON. THE PT HAD A LARGE SOFT BM TODAY. THE PTS FRIEND WAS IN TO VISIT. CALL LIGHT IN REACH. BED IN THE LOW POSITION
[2023-06-12 19:29] VITALS: BP 111/49
--- NOTE | 2023-06-13 03:17 | NUR ---
BILLPOSTER SUMMARY VSS. LEFT ARM ELEVATED ON PILLOW FOR COMFORT. DRESSINGS INTACT. HOB ELEVATED FOR COMFORT IN REST. IV ANTIBIOTICS ADMINISTERED ORDERED, SEE MAR FOR DETAILS RE ANALGESICS, ETC. NOTED SOME DEPRESSION, TERAY EYED AT HS. JOKED ABOUT SELF PILLOW THERAPY. NURSE DISCUSSED PT FEELINGS, CURRENT SITUATION, PROVIDED SUPPORT AND ENCOURAGEMENT. PT SEEMED TO CHEER UP AND CONVERSATION IMPROVED. INTERMITTENT JOKING WITH NURSE AFTERWARDS. HAS BEEN RESTING QUIETLY WITH FEW INTERRUPTIONS. CALL LIGHT IN REACH. RAILS UP X 2 FOR SAFETY. WILL CONTINUE TO MONITOR
[2023-06-13 03:40] VITALS: BP 113/67
[2023-06-13 06:07] LABS: BASOPHILS ABSOLUTE AUTO 0.13 K/mm3 (0.00-0.23); BASOPHILS PERCENT AUTO 1 % (0-2); EOSINOPHILS ABSOLUTE AUTO 1.29 K/mm3 (0.00-0.68); EOSINOPHILS PERCENT AUTO 5 % (0-6); Hematocrit 29.5 % (33.0-51.0); Hemoglobin 9.5 g/dL (11.5-16.0); IMMATURE GRAN ABSOLUTE AUTO 0.37 K/mm3 (0.00-0.10); IMMATURE GRAN PERCENT AUTO 2 % (0-1); LYMPHOCYTES ABSOLUTE AUTO 0.84 K/mm3 (0.84-5.20); LYMPHOCYTES PERCENT AUTO 4 % (21-46); MONOCYTES ABSOLUTE AUTO 1.92 K/mm3 (0.16-1.47); MONOCYTES PERCENT AUTO 8 % (4-13); Mean Corpuscular HGB 25.4 pg (26.0-34.0); Mean Corpuscular HGB Conc 32.2 g/dL (31.5-36.5); Mean Corpuscular Volume 79 fL (80-100); Mean Platelet Volume 9.9 fL (9.1-12.4); NEUTROPHILS ABSOLUTE AUTO 19.69 K/mm3 (1.96-9.15); NEUTROPHILS PERCENT AUTO 81 % (41-73); Platelet Count 554 K/mm3 (150-400); RDW Standard Deviation 51.8 fL (35.1-46.3); Red Blood Cell Count 3.74 M/mm3 (3.80-5.20); White Blood Cell Count 24.24 K/mm3 (4.00-11.30)
[2023-06-13 06:53] LABS: Bun/Creatinine Ratio 10.6 (12.0-20.0); Calcium, Blood 7.4 mg/dL (8.5-10.1); Creatinine, Blood 0.57 mg/dL (0.40-1.00); Potassium, Blood 3.7 mmol/L (3.5-5.5)
[2023-06-13 07:28] VITALS: BP 105/54
[2023-06-13 15:56] VITALS: BP 125/58
--- NOTE | 2023-06-13 16:37 | NUR ---
Initial palliative care consult: Leelee is a 72 year old with a history of chondrosarcoma with extensive mets. Dr. Espitia and CM RN requesting PC meet with pt to go over some advanced care planning. Leelee was told this morning that her hospitalist had spoken to her MD at [facility] and that they were both recommending hospice at this time. Leelee said she has been working through processing this information all day today. She told her some of the information she learned however she feels like she needs to protect him from it. They have no children. They have a receiving operator and some close friends who have been coming into visit. This visit was spent allowing Leelee to tell this keno writer/runner about her life, her writings and her cancer diagnosis. We discussed her feelings and her thoughts about what to do moving forward. Offered emotional support. Offered to discuss option of hospice. Leelee stated that she would like to process information a little more. She reports headache and nausea. She is agreeable to have PC return tomorrow with information re: hospice. She would like to discuss her options and talk about her code status tomorrow. Notified bedside nursing of nausea and headache. Updated that this keno writer/runner will return tomorrow to discuss advanced care planning and code status. Dr. Espitia also updated. PC to return tomorrow.
--- NOTE | 2023-06-13 18:33 | NUR ---
PT IS A/OX4, PLEASANT AND COOPERATIVE. THE PT IS UP WITH MINIMAL ASSIST TO THE BSC. THE PT WAS MEDICATED FOR LEFT ARM AND H/A PAIN T/O THE DAY. PT WAS MEDICATED FOR NAUSEA X2. PT APPEARS TO BE BREATHING EASILY AT REST. PALLIATATIVE CARE CONSULTED WITH THE PT TODAY. THE PTS WAS IN TO VISIT. CALL LIGHT IN REACH. BED IN THE LOW POSITION
[2023-06-13 20:35] VITALS: BP 110/70
--- NOTE | 2023-06-14 04:56 | NUR ---
SHIFT SUMMARY. PATIENT IS AOX4. PATIENT IS PLEASANT AND COOPERATIVE WITH CARE. PATIENT IS A 1 PERSON STAND BY ASSIST TO BS. PATIENT HAS SLEPT ON AND OFF T/O NIGHT-PATIENT REPORTS BEING ABLE TO SLEEP FOR 3 HOURS FOLLOWING SCHEDULED MEDICATION FOR INSOMNIA. PATIENT REPORTS THAT SHE IS TRYING TO PROCESS ALL OF THE NEWS SHE HAS RECEIVED ON FRIDAY. THIS RN SPENT TIME WITH PATIENT IN HER ROOM TALKING AND HAVING THERAPUETIC CONVERSATIONS. BED IS LOCKED IN THE LOWEST POSITION WITH CALL LIGHT IN REACH. NO S/S OF DISTRESS NOTED AT THIS TIME.
[2023-06-14 05:58] VITALS: BP 119/58
[2023-06-14 07:33] VITALS: BP 114/57
[2023-06-14 08:19] LABS: BASOPHILS ABSOLUTE AUTO 0.09 K/mm3 (0.00-0.23); BASOPHILS PERCENT AUTO 0 % (0-2); EOSINOPHILS ABSOLUTE AUTO 1.28 K/mm3 (0.00-0.68); EOSINOPHILS PERCENT AUTO 6 % (0-6); Hematocrit 30.1 % (33.0-51.0); Hemoglobin 9.8 g/dL (11.5-16.0); IMMATURE GRAN PERCENT AUTO 1 % (0-1); LYMPHOCYTES ABSOLUTE AUTO 0.72 K/mm3 (0.84-5.20); LYMPHOCYTES PERCENT AUTO 4 % (21-46); MONOCYTES ABSOLUTE AUTO 1.57 K/mm3 (0.16-1.47); MONOCYTES PERCENT AUTO 8 % (4-13); Mean Corpuscular HGB 25.7 pg (26.0-34.0); Mean Corpuscular HGB Conc 32.6 g/dL (31.5-36.5); Mean Corpuscular Volume 79 fL (80-100); Mean Platelet Volume 9.7 fL (9.1-12.4); NEUTROPHILS ABSOLUTE AUTO 16.36 K/mm3 (1.96-9.15); NEUTROPHILS PERCENT AUTO 81 % (41-73); Platelet Count 561 K/mm3 (150-400); RDW Coefficient Variation 17.9 % (11.7-14.2); RDW Standard Deviation 51.3 fL (35.1-46.3); Red Blood Cell Count 3.82 M/mm3 (3.80-5.20); White Blood Cell Count 20.22 K/mm3 (4.00-11.30)
[2023-06-14 08:31] LABS: Bun/Creatinine Ratio 12.7 (12.0-20.0); Calcium, Blood 7.6 mg/dL (8.5-10.1); Creatinine, Blood 0.47 mg/dL (0.40-1.00); Potassium, Blood 3.7 mmol/L (3.5-5.5)
[2023-06-14 08:46] LABS: Vancomycin, Trough 16.2 ug/mL (5.0-10.0)
--- NOTE | 2023-06-14 12:28 | NUR ---
Met with Leelee again today. She tells this clinical writer that she continues to feel poorly. She reports continued nausea and feeling exhausted. She states she got up to use the barthroom yesterday and she felt extremely wiped out afterwards. She states that Dr. Espitia came in this morning and discussed that she has three different types of bacteria causing infection within her body. She tells this clinical writer "Three types of bacteria and three types of cancer inside me is a lot." Therapeutic listening and emotional support provided. She states that she has decided to be a DNR and requests that this change be made today. Provided reading materials for her per her request: information re: hospice, comsidering comfort care booklet, hard choices for loving people booklet and a POLST form. Explained that staff want her to be able to make an informed decision that is right for her. She would like to review information and talk with her before making any decisions moving forward. She would like PC nurse to return tomorrow to assist with answering questions and assist with advanced care planning prn. Spoke with Dr. Espitia. New orders placed for DNR. Discussed continued nausea and Dr. Espitia stated she will review Leelee's anti-nausea plan. Updated bedside nursing. Updated PC RN who will be covering tomorrow.
[2023-06-14 15:57] VITALS: BP 124/72
--- NOTE | 2023-06-14 17:16 | NUR ---
PT AOX4 AND COOPERATIVE OF CARE. PT TREATED FOR NAUSEA X1. PT CALL APPROPRIATELY AND HAS BEEN USING BEDSIDED COMMODE. PT VERY PLEASANT WITH INTERACTIONS. PT HAS BEEN IN BED EXCEPT FOR THE TIMES SHE NEEDS TO VOID. CALL LIGHT IS WITHIN REACH WILL CONTINUE TO MONITOR. BANDAGES CHANGED PER ORDER PT TOLERATED WELL.
[2023-06-14 20:12] VITALS: BP 138/63
--- NOTE | 2023-06-14 22:53 | NUR ---
HOSPITALIST CONTACTED. HOSPITALIST CONTACTED FOR PATIENTS C/O OF INSOMNIA. SCIENTIFIC ARTISTJefferson WREN ORDERED TO INCREASE PATIENTS DOSE OF TRAZODONE-SEE ORDERS.
--- NOTE | 2023-06-15 03:57 | NUR ---
SHIFT SUMMARY. PATIENT IS A0X4. 1 PERSON ASSIST W/FWW TO BSC. PATIENT IS PLEASANT AND COOPERATIVE WITH CARE. PATIENT REPORTS FEELING VERY TIRED AND HAVING DIFFICULTY WITH SLEEP-SEE PREVIOUS NOTE. PATIENT HAS HAD NO ACUTE CHANGES OVER NIGHT. PATIENT CALLS APPROPRIATELY AND IS ABLE TO MAKE HER NEEDS KNOWN. BED IS LOCKED IN THE LOWEST POSITION WITH CALL LIGHT IN REACH. NO S/S OF DISTRESS NOTED AT THIS TIME. CARE ONGOING.
[2023-06-15 04:34] VITALS: BP 140/56
[2023-06-15 05:41] LABS: BASOPHILS PERCENT AUTO 1 % (0-2); EOSINOPHILS ABSOLUTE AUTO 1.37 K/mm3 (0.00-0.68); EOSINOPHILS PERCENT AUTO 7 % (0-6); Hematocrit 27.9 % (33.0-51.0); Hemoglobin 8.9 g/dL (11.5-16.0); IMMATURE GRAN ABSOLUTE AUTO 0.26 K/mm3 (0.00-0.10); IMMATURE GRAN PERCENT AUTO 1 % (0-1); LYMPHOCYTES ABSOLUTE AUTO 0.78 K/mm3 (0.84-5.20); LYMPHOCYTES PERCENT AUTO 4 % (21-46); MONOCYTES ABSOLUTE AUTO 1.57 K/mm3 (0.16-1.47); MONOCYTES PERCENT AUTO 8 % (4-13); Mean Corpuscular HGB 25.1 pg (26.0-34.0); Mean Corpuscular HGB Conc 31.9 g/dL (31.5-36.5); Mean Corpuscular Volume 79 fL (80-100); Mean Platelet Volume 9.6 fL (9.1-12.4); NEUTROPHILS ABSOLUTE AUTO 15.04 K/mm3 (1.96-9.15); NEUTROPHILS PERCENT AUTO 79 % (41-73); Platelet Count 548 K/mm3 (150-400); RDW Coefficient Variation 17.9 % (11.7-14.2); RDW Standard Deviation 51.9 fL (35.1-46.3); Red Blood Cell Count 3.54 M/mm3 (3.80-5.20); White Blood Cell Count 19.12 K/mm3 (4.00-11.30)
[2023-06-15 06:04] LABS: Bun/Creatinine Ratio 9.8 (12.0-20.0); Calcium, Blood 7.6 mg/dL (8.5-10.1); Creatinine, Blood 0.51 mg/dL (0.40-1.00); Potassium, Blood 3.6 mmol/L (3.5-5.5)
[2023-06-15 07:30] VITALS: BP 111/61
[2023-06-15 15:33] VITALS: BP 111/59
--- NOTE | 2023-06-15 17:13 | NUR ---
AT IS AOX4 AND COOPERATIVE OF CARE. PT IS A ONE PERSON TO BEDSIDE COMMODE. TREATED FOR GENERALIZED PAIN PER EMAR. PT CALL APPROPRIATELY AND IS COOPERATIVE OF CARE. BANDAGES ON L ARM CHANGED AND PT TOLERATED WELL. CALL LIGHT IS WITHIN REACH WILL CONTINUE TO MONITOR.
[2023-06-15 19:18] VITALS: BP 114/56
[2023-06-16 04:11] VITALS: BP 116/59
[2023-06-16 05:45] LABS: BASOPHILS ABSOLUTE AUTO 0.11 K/mm3 (0.00-0.23); BASOPHILS PERCENT AUTO 1 % (0-2); EOSINOPHILS ABSOLUTE AUTO 1.41 K/mm3 (0.00-0.68); EOSINOPHILS PERCENT AUTO 7 % (0-6); Hematocrit 27.3 % (33.0-51.0); Hemoglobin 8.7 g/dL (11.5-16.0); IMMATURE GRAN ABSOLUTE AUTO 0.34 K/mm3 (0.00-0.10); IMMATURE GRAN PERCENT AUTO 2 % (0-1); LYMPHOCYTES ABSOLUTE AUTO 0.83 K/mm3 (0.84-5.20); LYMPHOCYTES PERCENT AUTO 4 % (21-46); MONOCYTES PERCENT AUTO 8 % (4-13); Mean Corpuscular HGB 25.2 pg (26.0-34.0); Mean Corpuscular HGB Conc 31.9 g/dL (31.5-36.5); Mean Corpuscular Volume 79 fL (80-100); Mean Platelet Volume 10.3 fL (9.1-12.4); NEUTROPHILS ABSOLUTE AUTO 15.84 K/mm3 (1.96-9.15); NEUTROPHILS PERCENT AUTO 78 % (41-73); Platelet Count 498 K/mm3 (150-400); RDW Coefficient Variation 18.2 % (11.7-14.2); RDW Standard Deviation 52.1 fL (35.1-46.3); Red Blood Cell Count 3.45 M/mm3 (3.80-5.20); White Blood Cell Count 20.23 K/mm3 (4.00-11.30)
[2023-06-16 06:10] LABS: Bun/Creatinine Ratio 9.4 (12.0-20.0); Calcium, Blood 7.9 mg/dL (8.5-10.1); Creatinine, Blood 0.53 mg/dL (0.40-1.00); Potassium, Blood 4.2 mmol/L (3.5-5.5)
[2023-06-16 07:24] VITALS: BP 118/64
--- NOTE | 2023-06-16 07:51 | NUR ---
SHIFT SUMMARY. PATIENT IS ALERT AND ORIENTED X4. PATIENT IS PLEASANT AND ABLE TO MAKE HER NEEDS KNOWN. PATIENT IS A 1 PERSON ASSIST. PATIENT REPORTS SHE HAS SLEPT WELL THIS SHIFT. PATIENTS STATES SHE WOULD LIKE TO GO TO REHAB AND THAT SHE HAS STAIRS AT HOME AND HER IS GOING TO HAVE A CHAIR LIFT INSTALLED FOR TRANSPORTATION UP AND DOWN STAIRS. NO ACUTE CHANGES NOTED. BED IS LOCKED IN THE LOWEST POSITION WITH CALL LIGHT IN REACH. NO S/S OF DISTRESS NOTED.
[2023-06-16 15:14] VITALS: BP 133/65
--- NOTE | 2023-06-16 17:21 | NUR ---
PT AOX4 AND COOPERATIVE OF CARE. TREATED FOR PAIN AND NAUSEA PER EMAR. PT WAS ABLE TO GET A SHOWER WITH ASSISTANCE FROM [facility].PT HAS ALSO BEEN AMBULATING TO RESTROOM TODAY. L ARM BANDAGES WERE CHANGED AND PT TOLERATED WELL. CALL LIGHT WAS WITHIN REACH WILL CONTINUE TO MONITOR.
[2023-06-16 20:03] VITALS: BP 117/62
--- NOTE | 2023-06-17 04:32 | NUR ---
SHIFT SUMMARY JACK WAS ALERT AND FULLY ORIENTED AT START OF SHIFT. PT REQUIRES 1P ASSIST FOR XFER. PT DENIES ANY NEW OR WORSENING SYMPTOMS, AND HAD NO ACUTE EVENTS OR CHANGES TO CONDITION TONIGHT. PT SCREAMS IN HER SLEEP SOMETIMES. [facility] AND SHOULD BE DISCHARGING THERE ON DAYSHIFT TODAY. PT RESTING IN BED AT A LOW POSITION WITH CALL LIGHT IN REACH.
[2023-06-17 06:02] VITALS: BP 115/57
[2023-06-17 08:36] VITALS: BP 111/59
[2023-06-17 11:40] LABS: Influenza A Negative (NEGATIVE); Influenza B Negative (NEGATIVE)
[2023-06-17 11:53] LABS: SARS-Cov-2 (COVID-19) PCR, MMC NEGATIVE (NEGATIVE)
[2023-06-17] MEDS ORDERED: OXAYDO5 M1 PO (13:05)
[2023-06-17] MEDS ORDERED: Acetaminophen650 M1 PO (13:06)
[2023-06-17] MEDS ORDERED: SENNA LAXATIVE8.6 MG PO (13:06)
[2023-06-17] MEDS ORDERED: GUAI600T33 PO (13:06)
[2023-06-17] MEDS ORDERED: MIRALAX17 GM PO (13:06)
[2023-06-17] MEDS ORDERED: DOXY100 PO (13:06)
[2023-06-17] MEDS ORDERED: TRAZ100 PO (13:07)
[2023-06-17] MEDS ORDERED: VISBIOME 112.51 EACH PO (13:07)
--- NOTE | 2023-06-17 17:03 | NUR ---
TRANSFER SUMMARY PATIENT TRANSPORTED VIA [facility] TRANSPORT TO [facility] AT 1645, POWERGLIDE TO RIGHT UPPER ARM REMOVED BY SQUIRREL WORKER. PATIENT WITH NO ACUTE EVENTS DURING SHIFT. RN TO RN REPORT GIVEN TO BOBO AT [facility] AT 1649. HARD SCRIPT OF OXYCODONE SENT WITH PATIENT IN PACKET.
== END 2023-06-17 16:30 | DRG 872 ==
LOC: ER 13:39 → MEDS 22:20 → ERHOLD 22:20 → MEDS 06-11 15:51 → ENPENDDIS 06-17 11:10 → MEDS 06-17 16:30
PROVIDERS: Family Medicine; Internal Medicine; Physician Assistant; ADMIT Student in an Organized Health Care Education/Training Program
DX: A41.1 Sepsis due to other specified staphylococcus (principal); C41.9 Malignant neoplasm of bone and articular cartilage, unspecified; C79.9 Secondary malignant neoplasm of unspecified site; E87.20 Acidosis, unspecified; E87.1 Hypo-osmolality and hyponatremia; Z66 Do not resuscitate; C44.609 Unspecified malignant neoplasm of skin of left upper limb, including shoulder; D63.8 Anemia in other chronic diseases classified elsewhere; D63.0 Anemia in neoplastic disease; D75.839 Thrombocytosis, unspecified; R65.20 Severe sepsis without septic shock; I10 Essential (primary) hypertension; K59.00 Constipation, unspecified; R53.81 Other malaise; F32.A Depression, unspecified; F41.9 Anxiety disorder, unspecified; E87.6 Hypokalemia
CPT/HCPCS: 36415; 73201; 74177; 80048; 80053; 80202; 81001; 83605; 85025; 87040; 87077; 87086; 87804; 87807; 93306; 94640; 94664; 94760; 94762; 96361; 96365-59; 96366; 96375; 96376; 97110; 97116; 97162; 97530; 99285-25; A9270; J0696; J1650; J2405; J2765; J3370; J7030; J7050; Q9967; U0002

== ENCOUNTER → 2023-07-02 | Outpatient (CLI) | payer MEDICARE, OTHER ==
[~2023-07-02] MED LIST changes: +Acetaminophen650 M1 PO; +DOXY100 PO; +ESTRADIOL0.5 MG PO; +GUAI600T33 PO; +MIRALAX17 GM PO; +OXAYDO5 M1 PO; +SENNA LAXATIVE8.6 MG PO; +TRAZ100 PO; +VISBIOME 112.51 EACH PO
== END ==
LOC: LAB 12:56 → LAB SHORT 12:56
DX: L08.9 Local infection of the skin and subcutaneous tissue, unspecified (principal)
CPT/HCPCS: 87070; 87077; 87147; 87186; 87205